=== PATIENT | male | born 1990 | race Caucasian/White ===

== ENCOUNTER 2023-10-19 21:31 | Emergency (ER) | payer MEDICAID ==
[~2023-10-19] VITALS: Ht 195.6 cm; Wt 106.6 kg
[2023-10-19 21:41] VITALS: BP_SYST 119; PULSE 107; RESP 16; TEMP 101.9; O2SAT 97
[2023-10-19] MEDS: ONDANSETRON 4 MG ODT TAB PO ONE (22:15)
[2023-10-19] MEDS: IBUPROFEN 800 MG TABLET PO ONE (22:17)
[2023-10-20 00:03] LABS: INFLUENZA TYPE A Negative (NEGATIVE); INFLUENZA TYPE B NEGATIVE (NEGATIVE)
[2023-10-20 01:50] VITALS: BP_SYST 120; PULSE 95; RESP 17; TEMP 98.6; O2SAT 97
== END 2023-10-20 01:50 | disposition home or self-care (01) ==
LOC: SED 21:31
DX: U07.1 COVID-19 (principal); B34.9 Viral infection, unspecified; R05.9 Cough, unspecified; J45.909 Unspecified asthma, uncomplicated
CPT/HCPCS: 99284; 71045; 87426; 36415; 87804 ×2; Q0162